=== PATIENT | female | born 1985 | race Caucasian/White ===

== ENCOUNTER 2019-10-13 15:30 | Emergency (ER) | payer OTHER, SELFPAY ==
[2019-10-13 15:58] VITALS: BP 126/79; PULSE 100; RESP 18; TEMP 36.7; O2SAT 100
--- NOTE | 2019-10-13 16:29 | ED.URI ---
HPI - URI/Sore Throat General Chief Complaint: Upper Respiratory Infection Stated Complaint: poss strep Time Seen by Provider: 10/13/19 16:29 Source: patient Mode of arrival: ambulatory Limitations: no limitations History of Present Illness HPI Narrative: patient presents with sore throat. No trouble swallowing no drooling. MD elicited complaint: sore throat Related Data Allergies Allergy/AdvReac Type Severity Reaction Status Date / Time doxycycline AdvReac Mild VOMITING Verified 10/13/19 16:33 Review of Systems Review of Systems: Narrative: CONSTITUTIONAL: Denies fever, chills, or sweats. EYES: Denies visual changes, redness, or discharge. ENT: Denies rhinorrhea, congestion, otalgia. Reports sore throat CARDIOVASCULAR: Denies chest pain, palpitations, or edema. RESPIRATORY: Denies cough or dyspnea. GASTROINTESTINAL: Denies abdominal pain, nausea, vomiting, or diarrhea. GENITOURINARY: Denies dysuria or hematuria. SKIN: Denies rash or itching. MUSCULOSKELETAL: Denies back pain, joint pain, or myalgia. NEUROLOGIC: Denies headache, numbness, or weakness. PSYCHIATRIC: Denies anxiety or depression. All systems reviewed & are unremarkable except as noted in HPI and below PMFSH Comments At time of signature, agree with nursing past medical, surgical, social and family history. There is no relevant family history pertinent to the presenting complaint Exam Narrative: Exam Narrative: GENERAL: Well-appearing, well-nourished, and in no acute distress. HEAD: Normocephalic, atraumatic. EYES: PERRLA and EOMI. ENT: Nares clear, no rhinorrhea or epistaxis. Mucous membranes moist. Mild pharyngeal erythremia, no trismus, no drooling, able to open mouth fully NECK: Supple. CHEST: Clear to auscultation. No respiratory distress. HEART: Regular rate and rhythm. No murmur heard. Normal peripheral pulses. ABDOMEN: Soft, nontender, nondistended, normal active bowel sounds. EXTREMITIES: Normal range of motion. No edema. SKIN: Warm, dry, no rash. NEURO: No focal deficits. Alert and oriented x3. [place] Coma Scale Eye Opening: Spontaneous 4 [place] Coma Scale Motor: Obeys Commands 6 [place] Coma Scale Verbal: Oriented 5 [place]iz Coma Scale Total 15 Course Vital Signs Vital signs: Vital Signs Temperature 36.7 C 10/13/19 15:58 Pulse Rate 100 10/13/19 15:58 Respiratory Rate 18 10/13/19 15:58 Blood Pressure 126/79 10/13/19 15:58 Pulse Oximetry 100 10/13/19 15:58 Temperature 36.7 C 10/13/19 15:58 Pulse Rate 100 10/13/19 15:58 Respiratory Rate 18 10/13/19 15:58 Blood Pressure 126/79 10/13/19 15:58 Pulse Oximetry 100 10/13/19 15:58 MDM - URI/Sore Throat Differential Diagnosis Differential diagnosis: Likely upper respiratory infection, otitis media, sinusitis, viral infection, bronchitis and pharyngitis Lab Data Labs: Strep Screen Presumptive Negative *(Reference Range: Negative)* Critical Care Time Critical Care Time Critical Care Time: No Discharge Plan Discharge Clinical Impression: Viral infection Pharyngitis Qualifiers: Pharyngitis/tonsillitis etiology: other specified organisms Qualified Code(s): J02.8 - Acute pharyngitis due to other specified organisms Patient Disposition: Home, Self-Care Condition: Stable Instructions: Antibiotic Form Additional Instructions: *Throw away your current toothbrush and begin using a new toothbrush in 48 hours in order to prevent re-infection. If anyone else's toothbrush is stored near yours, they should also throw away their current toothbrush and begin using a new one. *Sanitize all reusable water bottles. *Do not share items with others. *Wash your hands often. Supportive care/Soothing measures/Pain relief: *Avoid cigarette smoke (including secondhand smoke) *Avoid acidic foods and beverages *Eat a soft diet for the next 3-4 days *Salt water gargles may alleviate some of the throat discomfort. Most
== END 2019-10-13 16:55 | disposition home or self-care (01) ==
PROVIDERS: Emergency Provider Nurse Practitioner Family; PCP Internal Medicine
DX: B34.9 Viral infection, unspecified (principal); J02.8 Acute pharyngitis due to other specified organisms
CPT/HCPCS: 87081; 87880; 99213; G0463

== ENCOUNTER 2020-05-30 00:35 | Outpatient (CLI) | payer OTHER, SELFPAY ==
[2020-05-30 16:40] LABS: SARS-CoV-2 RNA PCR Negative
== END 2020-05-30 00:36 | disposition home or self-care (01) ==
LOC: ANHCOVIDDT 00:35
PROVIDERS: PCP Internal Medicine; Visit Provider Obstetrics & Gynecology
DX: Z01.812 Encounter for preprocedural laboratory examination (principal); Z20.828 Contact with and (suspected) exposure to other viral communicable diseases
CPT/HCPCS: 87635; C9803; U0003

== ENCOUNTER 2020-06-01 02:20 | Day surgery (SDC) | payer OTHER, SELFPAY ==
[2020-05-19 17:00] VITALS: BMI 32.3
[2020-06-01] VITALS (14 sets, daily range): BP systolic 109–131; BP diastolic 70–92; PULSE 58–100; RESP 12–20; TEMP 36.5–37.1; O2SAT 93–100
--- NOTE | 2020-06-01 11:51 | P.HP_ITS ---
H&P: HPI History of Present Illness Date/Time: 06/01/20 11:51 Chief complaint: Pelvic Pain/ Dysmenorrhea Narrative: 35 y/o who has had a tubal ligation and an endometrial ablation. Her menstrual flow has really lightened, but she has had persistent and steadily worsening dysmenorrhea. She has tried a number of different remedies, and none has worked very well. She desires definitive management. Review of Systems Review of Systems: All systems reviewed & are unremarkable except as noted in HPI and below PMFSH Surgical History Surgical History History of endometrial ablation History of reduction mammoplasty History of tubal ligation Social History Social History Smoking status: Never smoker Alcohol intake: current Alcohol use details: drinks every 6 months Substance use: never Living arrangements: with family Spiritual care concerns: No Meds Home Medications and Allergies Home Medications Medication Instructions Recorded Confirmed Type No Home Medications 05/19/20 05/19/20 History Allergies Allergy/AdvReac Type Severity Reaction Status Date / Time doxycycline AdvReac Mild VOMITING Verified 05/19/20 16:40 Exam 2 Const: Orientation/consciousness: patient oriented x3 Other: Well- developed, well-nourished female in no acute distress. Neck: Thyroid: thyroid normal Lymphatic: no lymphadenopathy noted (in neck, axilla or inguinal nodes) Resp: Effort & Inspection: normal respiratory effort Auscultation: clear to auscultation bilaterally Cardio: Rate: regular rate Rhythm: regular rhythm Heart sounds: S1 normal heart sound present and S2 normal heart sound present GI: Other: ABD: Soft, nontender, nondistended. No guarding or rebound tenderness. No hepatosplenomegaly. : General: Yes no CVA tenderness Other: External genitalia: normal female hair distribution, without lesion. Urethral meatus: no lesion, non prolapsed. Bladder: no mass, nontender Vagina: well-estrogenized, without lesion or discharge. No cystocele or rectocele. Cervix: no lesion or discharge. Uterus: small, anteverted, freely mobile, nontender Adnexa: no mass or tenderness. Anus/perineum: no lesions, nontender Back/Spine/Pelvis: Back: no CVA tenderness Skin: General skin exam: normal color and no rashes or lesions noted Neuro: General: patient oriented x3 Extrem: Other: Extremities: nontender with no edema Psych: Mental Status: mental status grossly normal Affect: normal affect Assessment and Plan Assessment and plan (1) Dysmenorrhea: Code(s): N94.6 - Dysmenorrhea, unspecified Status: Acute Assessment and Plan: She desires definitive management with hysterectomy. She understands that hysterectomy will render her permanently sterile. I have offered her a total vaginal hysterectomy with bilateral salpingectomies. We plan to leave the ovaries in situ. She understands risks of surgery to include risks of anesthesia, risks of pain, infection, bleeding, blood products, thromboembolic phenomena and damage to adjacent structures such as bowel, bladder, ureters, blood vessels and nerves. She understands all these risks and elects to proceed with surgery.
[2020-06-01] MEDS: ACETAMINOPHEN 500 MG TABLET 1000 MG PO (12:58)
--- NOTE | 2020-06-01 13:01 | WPDHPUPDATE1 ---
History and Physical Update Update Date/Time: 06/01/20 13:01 History and Physical has been reviewed, including an updated exam of the patient. There are NO changes in the patient's condition. Risks, benefits, and alternatives have been discussed and questions answered. Patient agrees to proceed with procedure.
--- NOTE | 2020-06-01 13:25 | WPDANESEPPF ---
Anes - Initial Pre Proc Eval Procedure: Operation Date: 06/01/20 14:00 Proposed Procedures p Total Vaginal Hysterectomy With Bilateral Salpingectomy - John Marquis MD Date/Time: 06/01/20 13:25 Surgeon: John Marquis MD Pre Op Diagnosis: Pelvic Pain/ Dysmenorrhea Patient Data Age: 35 Gender: F Height: 5 ft 6 in Weight: 88.35 kg Last Vital Signs Temp 98.4 F 06/01/20 12:38 Pulse 78 06/01/20 12:38 Resp 16 06/01/20 12:38 BP 131/92 H 06/01/20 12:38 Pulse Ox 100 06/01/20 12:38 Allergies Allergy/AdvReac Type Severity Reaction Status Date / Time doxycycline AdvReac Mild VOMITING Verified 05/19/20 16:40 Home Medications Medication Instructions Recorded Confirmed Type No Home Medications 05/19/20 05/19/20 History Patient hx anesthesia problems: none Family hx anesthesia problems: none PMFSH Past Medical History Medical History (Updated 06/01/20 @ 13:25 by Keegan Chase MD) Anxiety Depression Surgical History Surgical History History of endometrial ablation History of reduction mammoplasty History of tubal ligation Social History Social History Smoking status: Never smoker Alcohol intake: current Alcohol use details: drinks every 6 months Substance use: never Living arrangements: with family Spiritual care concerns: No Anes - Eval Final PreProcedure Day of Procedure 06/01/20 13:25 Patient weight: overweight Heart: regular rate and rhythm Lungs: clear to auscultation Airway: Mallampati scale class II Neurological: alert and oriented Last oral intake: >/= 8 hours ASA classification: II Emergent: no Anesthetic plan: proceed Anesthesia type and monitoring: general ETT and standard monitoring Informed Consent: The patient's anesthetic plan and its attendant risks and benefits were discussed with the patient/family/POA. Questions were solicited and answers provided to the satisfaction of the patient/family/POA.
[2020-06-01] MEDS: KETOROLAC 15 MG/ML VIAL (*BKC) IV PUSH (13:28)
[2020-06-01] MEDS: LACTATED RINGERS 1,000 ML 30 ML IV CONT ×3 (13:29→16:05)
[2020-06-01] MEDS: ceFAZolin 2 GM/D5W 50 ML 2 GM/50 ML BAG IVPB (14:02)
--- NOTE | 2020-06-01 15:14 | P.OP_ITS ---
Procedure Note - Detailed Date of procedure: 06/01/20 Pre-op diagnosis: Pelvic Pain/ Dysmenorrhea Dysmenorrhea Post-op diagnosis: same Procedure performed: Total vaginal hysterectomy Description of procedure: The patient was taken to the operating room where she was prepared and draped in the usual sterile fashion in the dorsal lithotomy position. The bladder was drained with red rubber catheter. A weighted specul um was placed posteriorly. A Anthony retractor was used anteriorly. The cervix was grasped with a single-tooth tenaculum. Ten mL of sterile saline was infiltrated circumferentially around the cervix to aid in tissue plane dissection. The cervix was circumscribed using electrocautery. The peritoneal cavity was entered sharply posteriorly and a long weighted speculum was placed. The uterosacral and cardinal ligaments on both sides were then clamped, transected and suture ligated using 0 Vicryl. These were tagged for later identification. The bladder was dissected off the cervix and lower uterine segment and reflected away. The LigaSure device was then used to clamp, ligate and transect the broad ligaments bilaterally. Finally, the utero-ovarian ligament, round ligament and tube complexes on both sides were able to be clamped, transected and suture ligated using 0 Vicryl. The specimen was passed off to be sent to pathology. The Fallopian tubes were unable to be adequately visualized, so bilateral salpingectomy was not performed. The pedicles were inspected and found to be hemostatic. The vaginal cuff angles were then transfixed to the ipsilateral cardinal uterosacral ligaments for support. The vaginal cuff was reapproximated using 0 Vicryl in a running, locked fashion. Hemostasis was excellent. A [place] catheter was placed. Vaginal packing soaked in Premarin cream was placed. Sponge, lap, needle and instrument counts were correct. The patient was awakened and taken to the recovery room in stable condition. I was present and scrubbed for the entire procedure. Implants: None Anesthesia: GETA Surgeon: John Marquis MD Estimated blood loss (mL): 100 Drains: Yes (durham) Packing: Yes (vaginal) Pathology: yes (uterus and cervix) Complications: None Condition: stable Disposition: PACU Findings: The uterus was enlarged, otherwise unremarkable. Ovaries and tubes not able to be visualized.
--- NOTE | 2020-06-01 15:16 | PM.DS ---
DS: Admitting Diagnosis Admitting Diagnosis Admitting Diagnosis: Pelvic Pain/ Dysmenorrhea DS: Discharge Diagnosis Discharge Diagnosis (1) Dysmenorrhea: Code(s): N94.6 - Dysmenorrhea, unspecified Status: Acute DS: Data Data Completed and Pending Pending studies at discharge: Pending at discharge 06/01/20 14:55 Surgical [PTH] Routine Discharge Plan Discharge Patient Disposition: Home, Self-Care Discharge Instructions: Call or return if temperature above 100.4? F, increased abdominal pain, increased vaginal bleeding or any new problems. Stand Alone Forms: General Discharge Instructions Follow-up/Referrals: John Marquis MD [Physician] - (4 weeks) Discharge Medications: New ibuprofen 600 mg tablet 600 mg PO Q6H PRN (Reason: cramps) Qty: 30 RF: 0 oxycodone-acetaminophen [Percocet] 5-325 mg tablet 1 - 2 tablet PO Q6H PRN (Reason: pain) Qty: 30 RF: 0 Primary Care Provider: FrandyTheresa Attending physician on admission: John Marquis
[2020-06-01] MEDS: HYDROmorphone HCL INJ (*CRX) 1 MG/ML SYR 0.5 MG IV PUSH ×3 (15:36→15:52)
[2020-06-01] MEDS: diphenhydrAMINE HCl INJ 50 MG/ML VIAL 25 MG IV PUSH ×2 (15:54→16:10)
--- NOTE | 2020-06-01 16:37 | PC.NURSE ---
PT arrived on unit unaccompanied extremely agitated and anxious regarding her pain level. 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 PT verbalized understanding of such care.
[2020-06-01] MEDS: DEXTROSE 5%/0.45% SOD CHL 1,000 ML 125 ML IV CONT (16:59)
[2020-06-01] MEDS: SIMETHICONE 80 MG TAB.CHEW PO ×2 (17:00→23:20)
[2020-06-01] MEDS: HYDROcodone/acetaminophen (*CRX) 10-325 MG TABLET 1 TAB PO (17:02)
[2020-06-01] MEDS: fentaNYL CITRATE INJ (*CRX) 100 MCG/2 ML VIAL (18:39)
[2020-06-01] MEDS: fentaNYL CITRATE INJ (*CRX) 100 MCG/2 ML VIAL 25 MCG IV PUSH ×2 (19:40→20:40)
[2020-06-01] MEDS: ENOXAPARIN 40 MG/0.4 ML SYRINGE SUB-Q (20:40)
[2020-06-01] MEDS: IBUPROFEN 600 MG TABLET PO (21:45)
[2020-06-01] MEDS: oxyCODONE/ACETAMINOPHEN (*CRX) 5-325 MG TABLET 2 TABLET PO (21:46)
[2020-06-02] MEDS: SIMETHICONE 80 MG TAB.CHEW PO ×2 (03:37→08:52)
[2020-06-02] MEDS: oxyCODONE/ACETAMINOPHEN (*CRX) 5-325 MG TABLET 2 TABLET PO ×2 (03:38→08:53)
[2020-06-02] MEDS: IBUPROFEN 600 MG TABLET PO ×2 (03:39→08:53)
[2020-06-02 03:55] VITALS: BP 110/74; PULSE 92; RESP 16; TEMP 36.7
[2020-06-02 05:54] LABS: Basophils Percent Auto 0.1 % (0.2-1.2); Hematocrit 39.7 % (37.0-47.0); Hemoglobin 13.3 g/dL (12.0-15.0); Immature Granulocyte Absolute 0.07 K/mm3 (0.00-0.031); Immature Granulocyte Percent A 0.4 % (0-0.5); Lymphocytes Absolute Auto 1.99 K/mm3 (0.9-3.2); Lymphocytes Percent Auto 11.9 % (18.3-44.2); Mean Corpuscular HGB Conc 33.5 g/dl (32-36); Mean Corpuscular Hemoglobin 29.4 pg (26-34); Mean Corpuscular Volume 87.8 fl (80-100); Mean Platelet Volume 11.6 fl (7.4-10.4); Monocytes Absolute Auto 0.8 K/mm3 (0.1-0.6); Monocytes Percent Auto 4.7 % (2.6-8.5); Neutrophils Absolute Auto 13.9 K/mm3 (1.3-6.7); Neutrophils Percent Auto 82.9 % (45.5-73.1); Platelet Count Result 275 k/mm3 (150-375); Red Blood Count 4.52 M/mm3 (4.2-5.4); Red Cell Distribution Width 12.7 % (11.5-14.5); White Blood Count 16.7 K/mm3 (4.5-10.0)
--- NOTE | 2020-06-02 06:46 | PM.GYNPNOP ---
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 P: Home to f/u 4 weeks. Time Spent With Patient Time with patient: less than 15 minutes [employer]PAR[employer] R[employer] CLERK- PN:Subj Post-Op Subjective Date/time seen: 06/02/20 06:46 Interval history: Pain OK. Tolerating diet. Voiding. Would like to go home. Exam Narrative: Exam Narrative: AVSS I/O OK ABD soft, nontender. 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 - PN: Obj Data Vital Signs Vital Signs: Vital Signs - 24 hr 06/01/20 12:38 06/01/20 15:20 06/01/20 15:30 Temperature 36.9 C 36.5 C Pulse Rate 78 100 88 Respiratory Rate 16 14 19 Blood Pressure 131/92 H 126/89 129/84 Pulse Oximetry 100 97 100 06/01/20 15:45 06/01/20 16:00 06/01/20 16:15 Temperature Pulse Rate 70 88 88 Respiratory Rate 20 20 12 Blood Pressure 131/82 123/84 114/73 Pulse Oximetry 100 100 100 06/01/20 17:00 06/01/20 17:15 06/01/20 17:30 Temperature 36.6 C Pulse Rate 58 L 88 69 Respiratory Rate 18 18 18 Blood Pressure 115/79 109/74 111/75 Pulse Oximetry 98 93 93 06/01/20 17:45 06/01/20 17:55 06/01/20 18:30 Temperature 36.6 C 37.1 C Pulse Rate 88 58 L 95 Respiratory Rate 18 18 18 Blood Pressure 110/79 115/79 123/70 Pulse Oximetry 95 98 95 06/01/20 19:00 06/01/20 23:00 06/02/20 03:55 Temperature 36.9 C 36.7 C 36.7 C Pulse Rate 65 70 92 Respiratory Rate 20 20 16 Blood Pressure 113/81 117/79 110/74 Pulse Oximetry Intake/Output Intake/Output: Intake & Output 05/30/20 05/31/20 06/01/20 06/02/20 23:59 23:59 23:59 23:59 Intake Total 150 500 Output Total 1460 600 Balance -1310 -100 Meds/Results Medications: Active Medications Generic Name Dose Route Start Last Admin Trade Name Freq PRN Reason Stop Dose Admin Fentanyl Citrate 25 mcg 06/01/20 18:04 06/01/20 20:40 Sublimaze IV PUSH 25 mcg Q1HR PRN Administration Pain Rated 7-10 Dextrose/Sodium Chloride 1,000 mls @ 125 mls/hr 06/01/20 16:26 06/01/20 16:59 Dextrose 5% Sodium Chloride 0.45% IV CONT 125 mls/hr .Q8H PABLO Administration Ibuprofen 600 mg 06/01/20 16:26 06/02/20 03:39 Motrin PO 600 mg Q6H PRN Administration Cramping Ketorolac Tromethamine 30 mg 06/01/20 16:26 Toradol Inj IV PUSH 06/06/20 16:27 Q6H PRN Pain Rated 4-6 Naloxone HCl 0.1 mg 06/01/20 16:26 Narcan IV PUSH Q2M PRN Respiratory rate less than 10 Ondansetron HCl 4 mg 06/01/20 16:26 Zofran Inj IV PUSH Q6H PRN Nausea And Vomiting Oxycodone/Acetaminophen 2 tablet 06/01/20 18:06 06/02/20 03:38 Percocet 5-325 Mg PO 2 tablet Q6HR PRN Administration Pain Rated 7-10 Oxycodone/Acetaminophen 1 tablet 06/01/20 18:10 Percocet 5-325 Mg PO Q4H PRN Pain Rated 4-6 Simethicone 80 mg 06/01/20 16:26 06/02/20 03:37 Mylicon PO 80 mg Q2H PRN Administration Gas Labs CBC & Chem 7: 06/02/20 03:54 Labs: Laboratory Results - last 24 hr 06/01/20 06/02/20 13:10 03:54 WBC 16.7 H RBC 4.52 Hgb 13.3 Hct 39.7 MCV 87.8 MCH 29.4 MCHC 33.5 RDW 12.7 Plt Count 275 MPV 11.6 H Immature Gran % (Auto) 0.4 Neut % (Auto) 82.9 H Lymph % (Auto) 11.9 L Nolan % (Auto) 4.7 Eos % (Auto) 0.0 Baso % (Auto) 0.1 L Lymph # (Auto) 1.99 Nolan # (Auto) 0.8 H Eos # (Auto) 0.0 Baso # (Auto) 0.0 Abs Immat Gran (auto) 0.07 H Absolute Neuts (auto) 13.9 H Absolute Nucleated RBC 0.0 Nucleated RBC % 0.0 Blood Type O Negative Antibody Screen Negative
[2020-06-02 07:30] VITALS: BP 105/72; PULSE 73; RESP 16; TEMP 36.8; O2SAT 98
--- NOTE | 2020-06-02 08:30 | PC.NURSE ---
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 PT verbalized understanding of such care.
[2020-06-02 09:00] VITALS: PULSE 73; RESP 16; O2SAT 98
--- NOTE | 2020-06-02 10:46 | WPDANESPN ---
Anes - Prog Note Post-Op Date/Time: 06/02/20 10:46 Cardiovascular status: normal Respiratory status: normal Airway patency: baseline Mental status: baseline Post-Op hydration status: normal Vital Signs: Last Vital Signs Temp 36.8 C 06/02/20 07:30 Pulse 73 06/02/20 07:30 Resp 16 06/02/20 07:30 BP 105/72 06/02/20 07:30 Pulse Ox 98 06/02/20 07:30 Pain Score (VAS): 10/26 I/O: Intake & Output 06/01/20 06/02/20 06/02/20 23:59 07:59 15:59 Intake Total 100 500 Output Total 1410 600 Balance -1310 -100 Laboratory Tests 06/02/20 03:54 06/01/20 06/02/20 13:10 03:54 WBC 16.7 H RBC 4.52 Hgb 13.3 Hct 39.7 MCV 87.8 MCH 29.4 MCHC 33.5 RDW 12.7 Plt Count 275 MPV 11.6 H Immature Gran % (Auto) 0.4 Neut % (Auto) 82.9 H Lymph % (Auto) 11.9 L [place] % (Auto) 4.7 Eos % (Auto) 0.0 Baso % (Auto) 0.1 L Lymph # (Auto) 1.99 [place] # (Auto) 0.8 H Eos # (Auto) 0.0 Baso # (Auto) 0.0 Abs Immat Gran (auto) 0.07 H Absolute Neuts (auto) 13.9 H Absolute Nucleated RBC 0.0 Nucleated RBC % 0.0 Blood Type O Negative Antibody Screen Negative Post-procedural complaints: none Patient Feedback: Patient satisfied with anesthetic care.
--- NOTE | 2020-06-02 11:45 | PC.NURSE ---
PT received discharge instructions per protocol and verbalized understanding of such instructions.
--- NOTE | 2020-06-02 12:25 | PC.NURSE ---
PT discharged to home via wheelchair to waiting car. follow up appts confirmed
== END 2020-06-02 12:25 | disposition home or self-care (01) ==
LOC: ANHSURGERY 15:17 → ANHOB2 19:26
PROVIDERS: PCP Internal Medicine; Visit Provider Obstetrics & Gynecology
PROC: (CPT 58260; principal; 2020-06-01 14:00)
DX: N80.0 Endometriosis of uterus (principal); N94.6 Dysmenorrhea, unspecified; R10.2 Pelvic and perineal pain; Z98.51 Tubal ligation status
CPT/HCPCS: 58260; 36415; 85025; 86850; 86900; 86901; 88307; 99199; A9270; J0330; J0690; J1100; J1170; J1200; J1650; J1885; J2250; J2405; J2704; J3010; J7030; J7120

== ENCOUNTER 2022-06-11 11:48 | Emergency (ER) | payer OTHER, SELFPAY ==
--- NOTE | ~2022-06-11 | XR_ITS ---
EXAMINATION: XR abdomen/kub 1V INDICATION: Low back pain, right ureteral stone TECHNIQUE: Supine views of the abdomen were obtained on 2 radiographs. COMPARISON: CT from today FINDINGS: A 4 mm stone projects in the expected location of the distal [facility] There are phleboliths of the pelvis. The bowel gas pattern is normal. IMPRESSION: 1. 4 mm stone of the distal right ureter. Reviewed, dictated and finalized at location A.
--- NOTE | ~2022-06-11 | CT_ITS ---
EXAMINATION: CT abdomen pelvis wo con DATE: 06/11/2022 12:08 INDICATION: Hematuria. Low back pain. TECHNIQUE: Computed tomography (CT) of the abdomen and pelvis was performed without intravenous contr ast. Automated exposure control and iterative reconstruction technique were employed. The dose-length product was 479.47 mGy-cm. COMPARISON: None. FINDINGS: The visualized portions of the lung bases demonstrate minimal atelectasis. No pleural effus ion. The heart size is normal. No pericardial effusion. The liver, gallbladder, spleen, pancreas, adr enal glands, and left kidney are normal. There is a 4.5 cm cyst in right kidney. There is mild right hydronephrosis and hydroureter. There is a 4 mm stone in distal right ureter. There is diverticulosis of the colon without evidence of diverticulitis. The appendix is normal. There are no dilated loops of bowel. There are no pathologically enlarged lymph nodes. There is no free intraperitoneal fluid. T here is mild thoracolumbar spondylosis. IMPRESSION: 1. 4 mm stone in distal right ureter with mild right hydronephrosis and hydroureter. Reviewed, dictated and finalized at location A. IMPRESSION: 1. 4 mm stone in distal right ureter with mild right hydronephrosis and hydrour eter.
[2022-06-11 11:50] VITALS: BP 148/91; PULSE 97; RESP 18; TEMP 36.2; O2SAT 100
[2022-06-11 12:15] LABS: Basophils Percent Auto 0.3 % (0.2-1.2); Eosinophils Absolute Auto 0.1 K/mm3 (0-0.3); Eosinophils Percent Auto 0.7 % (0-4.4); Hematocrit 44.1 % (37.0-47.0); Hemoglobin 14.4 g/dL (12.0-15.0); Immature Granulocyte Absolute 0.05 K/mm3 (0.00-0.031); Immature Granulocyte Percent A 0.5 % (0-0.5); Lymphocytes Absolute Auto 2.83 K/mm3 (0.9-3.2); Lymphocytes Percent Auto 26.6 % (18.3-44.2); Mean Corpuscular HGB Conc 32.7 g/dl (32-36); Mean Corpuscular Hemoglobin 30.2 pg (26-34); Mean Corpuscular Volume 92.5 fl (80-100); Monocytes Absolute Auto 0.7 K/mm3 (0.1-0.6); Monocytes Percent Auto 6.2 % (2.6-8.5); Neutrophils Percent Auto 65.7 % (45.5-73.1); Platelet Count Result 289 k/mm3 (150-375); Red Blood Count 4.77 M/mm3 (4.2-5.4); White Blood Count 10.6 K/mm3 (4.5-10.0)
[2022-06-11 12:27] LABS: Alanine Aminotransferase 18 U/L (6-35); Albumin Level 4.4 g/dL (3.5-5.1); Alkaline Phosphatase 72 U/L (38-126); Anion Gap 7 mmol/L (8-16); Aspartate Amino Transferase 22 U/L (14-36); Bilirubin,Total 0.6 mg/dL (0.2-1.3); Blood Urea Nitrogen 13 mg/dL (7-17); Calcium 9.3 mg/dL (8.4-10.2); Carbon Dioxide 28 mmol/L (22-30); Chloride 101 mmol/L (98-107); Estimated CRCL calculation 82 ml/min; Estimated Glomerular Filt Rate > 60; Glucose 125 mg/dL (65-110); Sodium 136 mmol/L (137-145)
[2022-06-11] MEDS: MORPHINE SULFATE (*CRX) 4 MG/ML INJ IV PUSH (12:50)
[2022-06-11] MEDS: KETOROLAC 30 MG/ML VIAL (*BKC) IV PUSH (12:50)
[2022-06-11] MEDS: SODIUM CHLORIDE 0.9% IV 1,000 ML 999 ML IV CONT ×2 (12:51→14:52)
[2022-06-11] MEDS: ONDANSETRON INJ 4 MG/2 ML VIAL IV PUSH (12:51)
[2022-06-11 13:19] LABS: Appearance Urine Cloudy (Clear); Bilirubin Urine 1+ (Negative); Blood Urine 3+ (Negative); Color Urine Amber (Yellow); Glucose Urine UA Negative (Negative); Ketones Urine Negative (Negative); Leukocyte Esterase Ur Negative LEU/UL (Negative); Nitrate Urine Negative (Negative); Protein Urine 2+ mg/dL (Negative); Specific Grav Ur >= 1.030 (1.001-1.035); Urobilinogen Urine 0.2 mg/dL (<2.0); pH Urine 5.5 (5.0-9.0)
--- NOTE | 2022-06-11 13:20 | ED.GENADULT ---
HPI - General Adult General Chief complaint: Urogenital-Female Stated complaint: Bilateral Flank Pain Time Seen by Provider: 06/11/22 12:18 History of Present Illness HPI narrative: 37-year-old female presents emergency room with bilateral flank pain radiates into her pelvis since yesterday. Patient endorses a history of kidney stones. States pain began gradually yesterday and has since worsened. Patient endorses noticing hematuria this morning. Denies fevers. Denies diarrhea or constipation. Related Data Allergies Allergy/AdvReac Type Severity Reaction Status Date / Time doxycycline AdvReac Mild VOMITING Verified 05/19/20 16:40 Review of Systems Review of Systems: CONSTITUTIONAL: Denies fever, chills, or sweats. EYES: Denies visual changes, redness, or discharge. ENT: Denies rhinorrhea, congestion, sore throat, or otalgia. CARDIOVASCULAR: Denies chest pain, palpitations, or edema. RESPIRATORY: Denies cough or dyspnea. GASTROINTESTINAL: Reports bilateral flank pain, nausea GENITOURINARY: Reports hematuria. SKIN: Denies rash or itching. MUSCULOSKELETAL: Denies back pain, joint pain, or myalgia. NEUROLOGIC: Denies headache, numbness, dizziness, or weakness. PSYCHIATRIC: Denies anxiety or depression. [facility] Past Medical History Medical History Anxiety Depression Surgical History Surgical History History of endometrial ablation History of reduction mammoplasty History of tubal ligation Social History Social History Smoking status: Never smoker Alcohol intake: current Alcohol use details: drinks every 6 months Substance use: never Spiritual care concerns: No Exam Narrative: GENERAL: Well-appearing, well-nourished, no physical limitations, and in no acute distress. HEAD: Normocephalic, atraumatic. EYES: Conjunctivae normal, PERRLA and EOMI. CHEST: Clear to auscultation. No respiratory distress. No wheezes rales or rhonchi. No tenderness. HEART: Regular rate and rhythm. No murmur heard. Normal peripheral pulses. ABDOMEN: Soft, nontender, nondistended, normal active bowel sounds. BACK: Bilateral CVA tenderness EXTREMITIES: Normal range of motion. No edema. No clubbing or cyanosis SKIN: Warm, dry, no rash. No noted wounds NEURO: No focal deficits. Alert and oriented x3. MAEW. CN's II-XI intact bilaterally, normal gait PSYCH: Cooperative. Normal mood and affect. Course Vital Signs Vital signs: Vital Signs Temperature 36.2 C L 06/11/22 11:50 Pulse Rate 97 06/11/22 11:50 Respiratory Rate 18 06/11/22 11:50 Blood Pressure 148/91 H 06/11/22 11:50 Pulse Oximetry 100 06/11/22 11:50 Temperature 36.2 C L 06/11/22 11:50 Pulse Rate 97 06/11/22 11:50 Respiratory Rate 18 06/11/22 11:50 Blood Pressure 148/91 H 06/11/22 11:50 Pulse Oximetry 100 06/11/22 11:50 Medical Decision Making MDM Narrative Medical decision making narrative: Discussed case with Dr. Ness. He states his office will give her a call in the morning for a close follow-up. Vital Signs Vital Signs: Vital Signs Temperature 36.2 C L 06/11/22 11:50 Pulse Rate 97 06/11/22 11:50 Respiratory Rate 18 06/11/22 11:50 Blood Pressure 148/91 H 06/11/22 11:50 Pulse Oximetry 100 06/11/22 11:50 Temperature 36.2 C L 06/11/22 11:50 Pulse Rate 97 06/11/22 11:50 Respiratory Rate 18 06/11/22 11:50 Blood Pressure 148/91 H 06/11/22 11:50 Pulse Oximetry 100 06/11/22 11:50 Lab Data Result diagrams: 06/11/22 12:02 06/11/22 12:02 Labs: Lab Results 06/11/22 06/11/22 06/11/22 Range/Units 12:02 12:02 12:59 WBC 10.6 H (4.5-10.0) K/mm3 RBC 4.77 (4.2-5.4) M/mm3 Hgb 14.4 (12.0-15.0) g/dL Hct 44.1 (37.0-47.0) % MCV 92.5 (80-100) fl MCH 30.2 (26-34) pg MC
[2022-06-11 13:41] LABS: Mucus Urine Few /lpf; RBC Urine >75 /hpf (0-2); WBC Urine >75 /hpf
[2022-06-11 14:10] LABS: Add Urine Microscopic? YES
[2022-06-11] MEDS: fentaNYL CITRATE INJ (*CRX) 100 MCG/2 ML VIAL 50 MCG IV PUSH (14:52)
[2022-06-11] MEDS: HYDROmorphone HCL INJ (*CRX) 1 MG/ML SYR IV PUSH (15:56)
== END 2022-06-11 17:54 | disposition home or self-care (01) ==
PROVIDERS: Emergency Medicine; Emergency Provider Nurse Practitioner Family
DX: N13.2 Hydronephrosis with renal and ureteral calculous obstruction (principal)
CPT/HCPCS: 36415; 74018; 74176; 80053; 81001; 85025; 87086; 87088; 96361; 96374; 96375; 99284; J1170; J1885; J2270; J2405; J3010; J7030

== ENCOUNTER 2022-06-14 19:42 | Emergency (ER) | payer OTHER, SELFPAY ==
--- NOTE | ~2022-06-14 | XR_ITS ---
EXAMINATION: XR abdomen/kub 1V DATE: 06/14/2022 20:04 INDICATION: Kidney stone. Right flank pain. TECHNIQUE: A supine view of the abdomen on 2 radiographs was obtained. COMPARISON: CT and KUB dated 06/11/2022 FINDINGS: The 3-4 mm distal right ureteral stone has advanced to the region of the ureterovesicular junction. U nchanged pattern of 3 phleboliths in the pelvis, one on the right and 2 including the largest on the left. There are couple additional densities slightly more cephalad in the pelvis corresponding to tub al ligation rings. Normal bowel gas pattern. Bone island at the left femoral head. IMPRESSION: 1. Interval advancement of a 3-4 mm right renal stone now at the ureterovesicular junction. Reviewed, dictated and finalized at location A. IMPRESSION: 1. Interval advancement of a 3-4 mm right renal stone now at the ureterovesicul ar junction.
[2022-06-14 19:45] VITALS: O2SAT 95
[2022-06-14 19:46] VITALS: BP 144/107; O2SAT 100
[2022-06-14 19:47] VITALS: BP 144/107; PULSE 94; RESP 16; TEMP 36.6; O2SAT 100
--- NOTE | 2022-06-14 19:53 | ED.GENADULT ---
HPI - General Adult General Chief complaint: Unspecified Stated complaint: R KIDNEY STONES Source: RN notes reviewed History of Present Illness HPI narrative: Patient presents emergency department from home for kidney stone. Patient states that she is seen in the emergency department yesterday and diagnosed with a kidney stone on the right side states that she had been doing better with the pain throughout the day today and then pain became more severe and she is driving home today states the pain is located in the right flank and goes around to the right abdomen described as sharp and stabbing states she has been taking her Flomax hydrocodone and Zofran with her last dose around 3 PM today she denies having fevers or chills or any other symptoms. The patient was given fentanyl 75 mcg by EMS in route the patient does state that fentanyl and morphine are not effective for her and that Dilaudid is the only pain medication that seems to help her Related Data Allergies Allergy/AdvReac Type Severity Reaction Status Date / Time doxycycline AdvReac Mild VOMITING Verified 05/19/20 16:40 Review of Systems Review of Systems: Gen.: Denies fevers or chills ENT: Denies congestion Respiratory: Denies shortness of breath or cough CV: Denies chest pain or palpitations GI: See HPI reports kidney stone Musculoskeletal: Denies back pain or muscle pain Neuro: Denies numbness, tingling, weakness or focal weakness Skin: Denies rash Except as documented, all other systems reviewed and negative [facility] Past Medical History Medical History Anxiety Depression Surgical History Surgical History History of endometrial ablation History of reduction mammoplasty History of tubal ligation Social History Social History Smoking status: Never smoker Alcohol intake: current Alcohol use details: drinks every 6 months Substance use: never Spiritual care concerns: No Exam Narrative: APPEARANCE: No acute distress, nontoxic, resting in bed EYES: EOMI HEENT: Normocephalic, atraumatic, OMM RESPIRATORY: No respiratory distress Clear to auscultation bilaterally with no rhonchi wheezing or rales. CARDIOVASCULAR: Regular rate and rhythm without murmurs rubs or gallops. ABDOMINAL: Soft, nontender, nondistended, no rebound or guarding right flank tenderness MUSCULOSKELETAl: Moves all extremities. No clubbing, cyanosis or edema. NEURO: Awake and alert. Following commands, speech normal, no focal deficits SKIN:: Warm, dry. No rashes lesions or abrasions PSYCHIATRIC: Normal affect/mood, Course Course Emergency Course: Reviewed old records showing right-sided kidney stone Patient states pain is improved with Dilaudid and Toradol. Patient states that Toradol showed increased improvement and is requesting Toradol prescription for at home Discussed with patient results of workup and diagnosis. Discussed need for follow-up with primary care, proper use of medication, and reasons to return to the emergency department. Patient understands and agrees to current treatment plan Vital Signs Vital signs: Vital Signs Pulse Oximetry 95 06/14/22 19:45 Temperature 97.9 F 06/14/22 19:47 Pulse Rate 94 06/14/22 19:47 Respiratory Rate 16 06/14/22 19:47 Blood Pressure 144/107 H 06/14/22 19:47 Pulse Oximetry 94 06/14/22 20:01 Medical Decision Making Vital Signs Vital Signs: Vital Signs Pulse Oximetry 95 06/14/22 19:45 Temperature 97.9 F 06/14/22 19:47 Pulse Rate 94 06/14/22 19:47 Respiratory Rate 16 06/14/22 19:47 Blood Pressure 144/107 H 06/14/22 19:47 Pulse Oximetry 94 06/14/22 20:01 Lab Data Result diagrams: 06/14/22 19:55 06/14/22 19:55 Labs: Lab Results 06/14/22 06/14/22 06/14/22 Range/Units 1
[2022-06-14 20:01] VITALS: O2SAT 94
[2022-06-14] MEDS: SODIUM CHLORIDE 0.9% IV 1,000 ML 999 ML IV CONT (20:02)
[2022-06-14] MEDS: HYDROmorphone HCL INJ (*CRX) 1 MG/ML SYR 0.5 MG IV PUSH (20:03)
[2022-06-14 20:06] LABS: Appearance Urine Cloudy (Clear); Bilirubin Urine Negative (Negative); Blood Urine 3+ (Negative); Color Urine Yellow (Yellow); Glucose Urine UA Negative (Negative); Ketones Urine 2+ mg/dL (Negative); Leukocyte Esterase Ur Negative LEU/UL (Negative); Nitrate Urine Negative (Negative); Protein Urine Trace mg/dL (Negative); Specific Grav Ur 1.025 (1.001-1.035); Urobilinogen Urine 0.2 mg/dL (<2.0); pH Urine 6.5 (5.0-9.0)
[2022-06-14 20:09] LABS: Basophils Percent Auto 0.2 % (0.2-1.2); Eosinophils Absolute Auto 0.1 K/mm3 (0-0.3); Eosinophils Percent Auto 0.4 % (0-4.4); Hematocrit 45.4 % (37.0-47.0); Hemoglobin 15.2 g/dL (12.0-15.0); Immature Granulocyte Absolute 0.07 K/mm3 (0.00-0.031); Immature Granulocyte Percent A 0.4 % (0-0.5); Immature Platelet Fraction Pct 4.9 % (0.9-11.2); Lymphocytes Percent Auto 11.7 % (18.3-44.2); Mean Corpuscular HGB Conc 33.5 g/dl (32-36); Mean Corpuscular Hemoglobin 30.9 pg (26-34); Mean Corpuscular Volume 92.3 fl (80-100); Mean Platelet Volume 10.4 fl (7.4-10.4); Monocytes Absolute Auto 0.9 K/mm3 (0.1-0.6); Monocytes Percent Auto 5.4 % (2.6-8.5); Neutrophils Absolute Auto 13.3 K/mm3 (1.3-6.7); Neutrophils Percent Auto 81.9 % (45.5-73.1); Platelet Count Result 290 k/mm3 (150-375); Red Blood Count 4.92 M/mm3 (4.2-5.4); White Blood Count 16.2 K/mm3 (4.5-10.0)
[2022-06-14 20:10] LABS: Amorphous Sediment Urine Few; Mucus Urine Rare /lpf; RBC Urine >75 /hpf (0-2); Squamous Epithelial Cell Urine Few /hpf (Few); WBC Urine 0-3 /hpf
[2022-06-14 20:16] LABS: Add Urine Microscopic? YES
[2022-06-14 20:18] LABS: Alanine Aminotransferase 21 U/L (6-35); Albumin Level 4.8 g/dL (3.5-5.1); Alkaline Phosphatase 71 U/L (38-126); Anion Gap 12 mmol/L (8-16); Aspartate Amino Transferase 25 U/L (14-36); Bilirubin,Total 0.5 mg/dL (0.2-1.3); Blood Urea Nitrogen 18 mg/dL (7-17); Calcium 9.2 mg/dL (8.4-10.2); Carbon Dioxide 29 mmol/L (22-30); Chloride 98 mmol/L (98-107); Estimated CRCL calculation 69 ml/min; Estimated Glomerular Filt Rate 57; Glucose 114 mg/dL (65-110); Potassium 4.3 mmol/L (3.4-5.0); Sodium 139 mmol/L (137-145)
[2022-06-14 20:19] LABS: Platelet Estimate Adequate (Adequate); Schistocytes None Seen (NORMAL)
--- NOTE | 2022-06-14 20:34 | PC.NURSE ---
Pt wanting own room. Moved to Room 15 and report given to Karla CHERY
--- NOTE | 2022-06-14 20:43 | PC.NURSE ---
Patient moved to room 15 due to anxiety sharing a room with someone . patient states she would like to transfer to another facility due to not being treated well and being punished by being put into a penitentiary cell . this RN apologized to patient stating that she was not being punished and that the room she was put in was the only room available at this time. patient was tearful. this RN asked if I could get anything for her and she states it doesnt even matter now . This RN asked charge nurse to speak with patient
[2022-06-14] MEDS: KETOROLAC 15 MG/ML VIAL (*BKC) IV PUSH (21:37)
[2022-06-14 22:13] VITALS: BP 124/68; PULSE 82; RESP 16; TEMP 37; O2SAT 100
[2022-06-14 22:21] LABS: SARS-CoV-2 RNA PCR Negative
--- NOTE | 2022-06-14 22:34 | PC.NURSE ---
rosmery sent home with patient and verbalized proper understanding
== END 2022-06-14 22:34 | disposition home or self-care (01) ==
PROVIDERS: Emergency Provider Emergency Medicine
DX: N20.0 Calculus of kidney (principal); Z20.822 Contact with and (suspected) exposure to COVID-19
CPT/HCPCS: 36415; 74018; 80053; 81001; 85025; 85055; 96361; 96374; 96375; 99284; C9803; J1170; J1885; J7030; U0003; U0005

== ENCOUNTER 2022-06-19 15:32 | Emergency (ER) | payer OTHER, SELFPAY ==
[2022-06-19 15:44] VITALS: BP 134/84; PULSE 92; RESP 20; TEMP 36.7; O2SAT 100
--- NOTE | 2022-06-19 15:54 | ED.LOWEXIN ---
HPI - Extremity Injury (Lower) General Chief Complaint: Extremity Injury, Lower Stated Complaint: Right big toe and index toe on left infection Time Seen by Provider: 06/19/22 15:54 Source: patient Mode of arrival: ambulatory Limitations: no limitations History of Present Illness HPI Narrative: 37 y/o female presented for c/o right great toe redness and swelling with drainage for about one month, worse for 2 days. States at the onset, she had pulled skin around the toe nail resulting in bleeding and open skin sore. Since then she applied peroxide, alcohol and HAMIDA. She spoke with a telemed doc and took 3 day course of abx without change in symptoms. Now reports more pain to the toe. She also reports cracked skin to right thumbnail and left 2nd toe nail. Denies redness, swelling or drainage to these sites. Related Data Allergies Allergy/AdvReac Type Severity Reaction Status Date / Time doxycycline AdvReac Mild VOMITING Verified 06/19/22 15:53 Review of Systems Review of Systems: CONSTITUTIONAL: Denies body aches, fever, chills, or sweats. EYES: Denies visual changes, redness, or discharge. CARDIOVASCULAR: Denies chest pain, palpitations, or edema. RESPIRATORY: Denies cough or dyspnea. GASTROINTESTINAL: Denies abdominal pain, nausea, vomiting, or diarrhea. SKIN: Reports redness and swelling to toe MUSCULOSKELETAL: Denies back pain, joint pain, or myalgia. NEUROLOGIC: Denies headache, numbness, tingling, or weakness. [facility] Past Medical History Medical History Anxiety Depression Surgical History Surgical History History of endometrial ablation History of reduction mammoplasty History of tubal ligation Social History Social History Smoking status: Never smoker Alcohol intake: current Alcohol use details: drinks every 6 months Substance use: never Spiritual care concerns: No Comments At time of signature, I have reviewed and agree with nursing past medical, surgical, social and family history unless otherwise noted. Please see nursing chart for further information. There is no relevant family history pertinent to the presenting complaint Exam Narrative: GENERAL: Well-appearing EYES: conjunctivae clear, and EOMI. ENT: Mucous membranes moist. Oropharynx without edema, erythema or lesions. CHEST: Clear to auscultation. HEART: Regular rate and rhythm. SKIN: Warm, dry. Right medial great toe with epidermal layer removed, mild swelling, redness, and purulent drainage, tender with palpation, c/w paronychia; Left 2nd toe with epidermal layer removed to lateral aspect of toenail without swelling, drainage or tenderness. Right thumb with dry cracked skin no swelling redness or tenderness NEURO: Alert and oriented x3. Course Course Emergency Course: Patient is aware of diagnosis, understands and agrees to treatment plan. Anticipatory guidance given. Patient agrees to follow-up as directed and is aware of reasons to seek care at the emergency department. Portions of this record may have been created with voice recognition software Level of Care: Express Care Visit Vital Signs Vital signs: Vital Signs Temperature 98.1 F 06/19/22 15:44 Pulse Rate 92 06/19/22 15:44 Respiratory Rate 20 06/19/22 15:44 Blood Pressure 134/84 06/19/22 15:44 Pulse Oximetry 100 06/19/22 15:44 Oxygen Delivery Room Air 06/19/22 15:44 Temperature 98.1 F 06/19/22 15:44 Pulse Rate 92 06/19/22 15:44 Respiratory Rate 20 06/19/22 15:44 Blood Pressure 134/84 06/19/22 15:44 Pulse Oximetry 100 06/19/22 15:44 Oxygen Delivery Room Air 06/19/22 15:44 Reviewed MDM - Extremity Injury (Lower) MDM Narrative Medical decision making narrative: Appears to have infection to left great toe, actively draining, no indication for
== END 2022-06-19 16:22 | disposition home or self-care (01) ==
PROVIDERS: Emergency Provider Nurse Practitioner Family
DX: L08.9 Local infection of the skin and subcutaneous tissue, unspecified (principal)
CPT/HCPCS: 99213; G0463

== ENCOUNTER 2023-02-14 19:02 | Emergency (ER) | payer OTHER, SELFPAY ==
[2023-02-14 19:05] VITALS: BP 131/83; PULSE 95; RESP 18; TEMP 37.1; O2SAT 100
== END 2023-02-14 20:53 | disposition left against medical advice (07) ==
LOC: ANHED 19:35
PROVIDERS: Emergency Provider Physician Assistant; PCP Internal Medicine
DX: J02.9 Acute pharyngitis, unspecified (principal)
CPT/HCPCS: 99199

== ENCOUNTER 2023-08-07 08:06 | Emergency (ER) | payer OTHER, SELFPAY ==
[2023-08-07 08:11] VITALS: BP 140/92; PULSE 102; RESP 20; TEMP 36.8; O2SAT 100
--- NOTE | 2023-08-07 08:18 | ED.SKABFB ---
HPI - Skin/Abscess/Foreign Bdy General Chief complaint: Skin/Abscess/Foreign Body Stated complaint: bit by spider right ankle Time Seen by Provider: 08/07/23 08:12 Source: patient Mode of arrival: ambulatory Limitations: no limitations History of Present Illness HPI narrative: Millie is a 38-year-old female patient presenting to the clinic today with complaints of possible spider bite to the left medial ankle. She reports that she saw a spider by her last night. The area is red with very mild swelling and very itchy per patient. Related Data Home Medications Medication Instructions Recorded Confirmed isotretinoin 40 mg capsule 40 mg PO DAILY 08/07/23 08/07/23 (Amnesteem) Allergies Allergy/AdvReac Type Severity Reaction Status Date / Time doxycycline AdvReac Mild VOMITING Verified 08/07/23 08:17 Review of Systems Review of Systems: Pertinent positives per HPI. Patient denies any fever, chills, rash, headache, visual changes, dizziness, cough, runny nose, sore throat, shortness of breath, chest pain, palpitations, nausea, vomiting, diarrhea, constipation, abdominal pain, or any urinary issues. [facility] Past Medical History Medical History Anxiety Depression Surgical History Surgical History History of endometrial ablation History of reduction mammoplasty History of tubal ligation Social History Social History Smoking status: Never smoker Alcohol intake: current Alcohol use details: drinks every 6 months Substance use: never Living arrangements: with family Spiritual care concerns: No Comments At the time of my signature, I reviewed and agree with the nursing past medical, surgical, social, and family history. There is no relevant family history pertinent to the patient complaint. Exam Narrative: General: Well-developed, well nourished, in no apparent distress Head: Normocephalic, atraumatic. Cardio: Regular rate and rhythm, s1 and s2 normal, no murmur appreciated. Resp: Clear to auscultation bilaterally, no rhonchi, rales, wheezing or rubs. Integumentary: [place], warm, and dry, nickel size area to the left medial ankle with a open blister-area is very itchy and warm to touch. Very mild induration. No necrotic tissue visualized. Course Course Emergency Course: Portions of this record may have been created with voice recognition software. Level of Care: Express Care Visit Vital Signs Vital signs: Vital Signs Temperature 36.8 C 08/07/23 08:11 Pulse Rate 102 H 08/07/23 08:11 Respiratory Rate 20 08/07/23 08:11 Blood Pressure 140/92 H 08/07/23 08:11 Pulse Oximetry 100 08/07/23 08:11 Oxygen Delivery Room Air 08/07/23 08:11 Temperature 36.8 C 08/07/23 08:11 Pulse Rate 102 H 08/07/23 08:11 Respiratory Rate 20 08/07/23 08:11 Blood Pressure 140/92 H 08/07/23 08:11 Pulse Oximetry 100 08/07/23 08:11 Oxygen Delivery Room Air 08/07/23 08:11 Vital signs reviewed MDM - Skin/Abscess/Foreign Bdy MDM Narrative Medical decision making narrative: At the time of visit patient is resting comfortably on the exam table. Patient appears to be nontoxic. I suspect the insect bite to the left medial ankle. Will send in prescription for Keflex to cover for infection and triamcinolone cream to cover for a true allergic reaction due to the insect bite. Supportive measures were discussed with the patient she voiced understanding of the discharge instructions and agrees to treatment plan. Return precautions were reviewed. Differential Diagnosis Differential diagnosis: Likely abscess of skin or subcutaneous tissue, cellulitis, eczema, insect bites and contact dermatitis Discharge Plan Discharge Clinical Impression: Insect bite Patient Disposition: Home, Self-Care Condition:
== END 2023-08-07 08:22 | disposition home or self-care (01) ==
PROVIDERS: Emergency Provider Nurse Practitioner Family
DX: S90.562A Insect bite (nonvenomous), left ankle, initial encounter (principal); W57.XXXA Bitten or stung by nonvenomous insect and other nonvenomous arthropods, initial encounter
CPT/HCPCS: 99213; G0463

== ENCOUNTER 2024-12-09 17:28 | Emergency (ER) | payer OTHER, SELFPAY ==
--- OUTSIDE RECORDS SUMMARY | 2024-12-09 17:31 | XMS_ITS | Clinical Summary ---
Author Organization [facility] Medical Office [facility] Address [address] [place] [address] Care Team Providers Care E Learning Developer Name Role Phone Franci Daniel MD Primary Care Provid er Allergies No known active allergies Medications topiramate (TOPAMAX) 100 mg Oral Tab Take 1 Tab by mouth daily. Active fluoxetine (PROZAC) 20 mg Oral capsule Take 20 mg by mouth daily. Active NUVARING 0.12-0.015 mg/24 hr Vaginal Ring Insert 1 Device vaginally. Insert one ring for 3 weeks, remove for 1 week,repeat again. NEEDS APPT 1 Device 0 02/09/2010 Active Active Problems No known active problems Family History Medical History Relation Name Comments Healthy Father Healthy Mother Healthy Sister 1 Healthy Sister 2 Healthy Son Relation Name Status Comments Father Alive Maternal Grandfather Maternal Grandmother Mother Alive Paternal Grandfather Paternal Grandmother Sister 1 Alive Sister 2 Alive Son Alive Social History Tobacco Use Types Packs/Day Years Used Date Smoking Tobacco: Former Comments:QUIT AT APRX 6 WKS --04/23 Alcohol Use Standard Drinks/Week Comments No 0 (1 standard drink = 0.6 oz pur e alcohol) Comments No Sex and Gender Information Value Date Recorded Sex Assigned at Not on file Legal Sex Female 5:37 AM APPLIANCE TECHNICIAN Gender Identity Not on file Sexual Orientation Not on file Last Filed Vital Signs Vital Sign Reading Time Taken Comments Blood Pressure 127/88 11/26/2009 2:52 PM APPLIANCE TECHNICIAN Pulse 109 11/26/2009 2:52 PM APPLIANCE TECHNICIAN Temperature 36.7 C (98.1 F) 11/26/2009 2:52 PM APPLIANCE TECHNICIAN Respiratory Rate 20 11/26/2009 2:52 PM APPLIANCE TECHNICIAN Oxygen Saturation 95% 11/26/2009 2:52 PM APPLIANCE TECHNICIAN Inhaled Oxygen Concentration - - Weight 81.6 kg (180 lb) 11/26/2009 2:52 PM APPLIANCE TECHNICIAN Height 167.6 cm (5' 6 ) 11/26/2009 2:52 PM APPLIANCE TECHNICIAN Body Mass Index 29.05 11/26/2009 2:52 PM APPLIANCE TECHNICIAN Plan of Treatment Health Maintenance Due Date Last Done Comments DTAP/TDAP/TD VACCINES (1 - Tdap) 2006 HEPATITIS B VACCINES (1 of 3 - 19+ 3-dose series) 2006 Preventative Visit-Managed Medicaid 2006 PAP SMEAR 01/11/2012 01/10/2009 CERVICAL CANCER SCREENING 2017 HPV/Cotest 2017 01/10/2009 PAP SMEAR 2017 02/24/2010, 01/10/2009 INFLUENZA VACCINE (#1) 2024 HPV VACCINES Aged Out No longer eligi ble based on patient's age to complete this topic PNEUMOCOCCAL VACCINE 0-49 YEARS Aged Out No longer eligible b ased on patient's age to complete this topic Procedures Procedure Name Priority Date/Time Associated Diagnosis Comments CERV/VAG CYTOPATH, THIN PREP IMAGR RFLX HPV Routine 01/10/2009 10:46 AM CDT Routine Follow-Up from Last 3 Months or Most Recently Relevant to Health Maintenance Results * CERV/VAG CYTOPATH, THIN PREP DRESS CAP MAKER W/RFLX (01/10/2009 10:46 AM CDT) REPORT STATUS FINAL [facility] CLINICAL INFORMATION [facility] Comment: LAST MENSTRUAL PERIOD [facility] Comment:Information not prov ided PREV PAP: [facility] Comment:ASCUS POS HIGH RISK HPV 4 08 PREV BX: [facility] Comment:Information not prov ided SOURCE [facility] Comment:Endocervix ADEQUACY: [facility] Comment: Satisfactory for evaluation. Endocervical/transformation zone component present. INTERPRETATION [facility] Comment: Reactive cellular changes associated with repair Negative for intraepithelial lesion or malignancy. COMMENT [facility] Comment: This Pap test has been evaluated with computer assisted technology. PRISON KEEPER: [facility] Comment:BEF, CT(ASCP) PATHOLOGIST [facility] Comment: Wayne Baugh M.D., Board Certified in Anatomic Pathology and Cytopathology. ext. [phone] (electronic signature) Test Performed at: [facility] [address] [place] [address] ALEX SINHA MD Endocervical 01/10/2009 10:4 6 AM CDT us Robbin Robb MD PATHOLOGY/CYTOLOGY ORDERABLES Final Result INTERFACE SYSTEM Refer to clinic/hospital department [facility] [id number] [place] [address] from Last 3 Months or Most Recently Relevant to Health Maintenance Insurance MEDICAID [place] Care Teams E Learning Developer Relationship Specialty Start Date End Date Franci Daniel MD [address] [place] [address] PCP - General 11/26/09
--- OUTSIDE RECORDS SUMMARY | 2024-12-09 17:31 | XMS_ITS | Encounter Summary ---
Author Organization [facility] Address [address] [place] [address] Care Team Providers Care Meat Packager Name Role Phone Franci Daniel MD Primary Care Provid er Encounter Details Date Type Department Care Team (Late st Contact Info) Description 01/20/2009 Outpatient Historical HIS EMERGENCY ROOM WASH Er, Authorized P NO ADDRESS ON FILE Triston Soto MD [address] [facility] [place] [address] Unspecified Conjunctivitis Social History Tobacco Use Types Packs/Day Years Used Date Smoking Tobacco: Former Comments:QUIT AT APRX 6 WKS --04/23 Alcohol Use Standard Drinks/Week Comments No 0 (1 standard drink = 0.6 oz pur e alcohol) Comments No Sex and Gender Information Value Date Recorded Sex Assigned at Not on file Legal Sex Female 5:[address] Gender Identity Not on file Sexual Orientation Not on file documented as of this encounter Plan of Treatment Not on file documented as of this encounter Visit Diagnoses Diagnosis Conjunctivitis unspecified Conjunctivitis, unspecified documented in this encounter Care Teams Meat Packager Relationship Specialty Start Date End Date Franci Daniel MD [address] [place] [address] PCP - General 11/26/09 documented as of this encounter
--- OUTSIDE RECORDS SUMMARY | 2024-12-09 17:31 | XMS_ITS | Encounter Summary ---
Author Organization [facility] Address [address] [place] [address] Care Team Providers Care Manufacturing Automation Engineer Name Role Phone Alfonso Aragon MD Primary Care Provid er Encounter Details Date Type Department Care Team (Latest Contact Info) Description 08/11/2008 Outpatient Historical HIS [facility] RADIOLOGY Macie Robb MD [address] [place] [address] [place] [address] Supervision of Normal First Social History Tobacco Use Types Packs/Day Years Used Date Smoking Tobacco: Never Assessed Comments Unknown Sex and Gender Information Value Date Recorded Sex Assigned at Not on file Legal Sex Female 5:37 AM SENIOR ENGINEERING TECHNICIAN Gender Identity Not on file Sexual Orientation Not on file documented as of this encounter Plan of Treatment Not on file documented as of this encounter Procedures Procedure Name Priority Date/Time Associated Diagnosis Comments US OB 14+ WKS SINGLE GEST Timed Study 08/11/2008 1:48 PM SENIOR ENGINEERING TECHNICIAN documented in this encounter Results * US OB 14+ WKS SINGLE GEST (08/11/2008 1:48 PM SENIOR ENGINEERING TECHNICIAN) Anatomical Region Laterality Modality Pelvis Other 08/11/2008 1:48 PM SENIOR ENGINEERING TECHNICIAN Narrative 08/17/2008 8:59 PM SENIOR ENGINEERING TECHNICIAN [facility] [address] [place] [id number] Admit Date: 08/11/2008 MILLIE BUTLER Sex: F Admit Prov: MACIE ROBB Date: 1985 Primary Care Prov: ALFONSO ARAGON CMRN: [id number] [facility] [phone] [facility] Ordering Prov: MACIE ROBB Accession Number: [id number] Interpretation PLEASE SEE REPORT FROM [facility] IN ULTRAVISUAL OR AWD (contact Medical Records). Dictated by: RADIOLOGY, DEPARTMENT O Electronically signed by: RADIOLOGY, DEPARTMENT 08/17/2008 20:59 Transcribed: 08/17/2008 12:17 RLH Procedure Note Radiology, Radiologist - 08/17/2008 [facility] [address] [address] Admit Date: 08/11/2008 MILLIE BUTLER Sex: F Admit Prov: MACIE ROBB Date: 1985 Primary Care Prov: ALFONSO ARAGON CMRN: [id number] [facility] [phone] IMAGING SERVICES Ordering Prov: MACIE ROBB Interpretation PLEASE SEE REPORT FROM [facility] IN ULTRAVISUAL OR AWD (contactMedical Records). Dictated by: RADIOLOGY, DEPARTMENT O Electronically signed by: RADIOLOGY, DEPARTMENT 08/17/2008 20:59 Transcribed: 08/17/2008 12:17 RL Macie Robb MD ORDERABLES Final Result documented in this encounter Visit Diagnoses Diagnosis Supervision of normal first documented in this encounter Care Teams Manufacturing Automation Engineer Relationship Specialty Start Date End Date Alfonso Aragon MD [address] [place] [address] PCP - General 11/26/09 documented as of this encounter
--- OUTSIDE RECORDS SUMMARY | 2024-12-09 17:31 | XMS_ITS | Encounter Summary ---
Author Organization [facility] Address [address] [place] [address] Care Team Providers Care Sales Force Developer Name Role Phone Franci Daniel MD Primary Care Provid er Encounter Details Date Type Department Care Team (Late st Contact Info) Description 12/04/2008 Outpatient Historical HIS OBSERVATION IN BED Robbin Robb MD [address] [address] Keegan Sullivan MD [address] [place] [address] [address] [place] [address] Social History Tobacco Use Types Packs/Day Years Used Date Smoking Tobacco: Former Comments:QUIT AT APRX 6 WKS --04/23 Alcohol Use Standard Drinks/Week Comments No 0 (1 standard drink = 0.6 oz pur e alcohol) Comments Yes Sex and Gender Information Value Date Recorded Sex Assigned at Not on file Legal Sex Female 5:37 AM LAB SUPPORT SERVICE TECH Gender Identity Not on file Sexual Orientation Not on file documented as of this encounter Plan of Treatment Not on file documented as of this encounter Visit Diagnoses Not on filedocumented in this encounter Care Teams Sales Force Developer Relationship Specialty Start Date End Date Franci Daniel MD [address] [place] [address] PCP - General 11/26/09 documented as of this encounter
--- OUTSIDE RECORDS SUMMARY | 2024-12-09 17:31 | XMS_ITS | Clinical Summary ---
Author Organization [facility] Address [address] [place] [address] Phone Care Team Providers Care Manager Cardiac Cath Name Role Phone Theresa Wise MD Primary Care Provider Allergies Active Allergy Reactions Criticality Noted Date Comments Doxycycline Vomiting 11/17/2018 Medications Escitalopram Oxalate (LEXAPRO) 5 MG Tablet Take 5 mg by mouth daily. Active amphetamine-dex troamphetamine (ADDERALL) 30 MG Tablet Take 30 mg by mouth daily. Active tamsulosin (FLOMAX) 0.4 MG Capsule Take 1 Cap by mouth every morning. 5 Cap 11/18/2018 Active traMADol (ULTRAM) 50 MG Tablet Take 1-2 Tabs by mouth every 8 hours as needed for Moderate or more severe pain. 15 Tab 11/18/2018 Active Active Problems Problem Noted Date Diagnosed Date Obstructive uropathy 11/17/2018 Leukocytosis 11/17/2018 Urinary tract infection without hematuria 2018 Ureteral stone 11/17/2018 Social History Tobacco Use Types Packs/Day Years Used Date Smoking Tobacco: Former Smokeless Tobacco: Never Alcohol Use Standard Drinks/Week Comments Never 0 (1 standard drink = 0.6 oz pur e alcohol) AUDIT-C Answer Date Recorded Frequency of Alcohol Consumption Never 11/17/2018 Average Number of Drinks Not on file 019 Frequency of Binge Drinking Not on file 12/2018 Comments No Sex and Gender Information Value Date Recorded Sex Assigned at Not on file Legal Sex Female 7:35 PM CDT Gender Identity Not on file Sexual Orientation Not on file Last Filed Vital Signs Vital Sign Reading Time Taken Comments Blood Pressure 118/84 11/18/2018 1:45 PM HEATER PLANER OPERATOR Pulse 76 11/18/2018 1:45 PM HEATER PLANER OPERATOR Temperature 36.7 C (98 F) 11/18/2018 1:45 PM HEATER PLANER OPERATOR Respiratory Rate 18 11/18/2018 1:45 PM HEATER PLANER OPERATOR Oxygen Saturation 95% 11/18/2018 10: 05 AM HEATER PLANER OPERATOR Inhaled Oxygen Concentration - - Weight 88.9 kg (195 lb 14.4 oz) 019 11:34 AM HEATER PLANER OPERATOR Height 165.1 cm (5' 5 ) 11/17/2018 5:21 AM HEATER PLANER OPERATOR Body Mass Index 32.6 11/17/2018 5:21 AM HEATER PLANER OPERATOR Plan of Treatment Health Maintenance Due Date Last Done Comments Hepatitis C Virus (HCV) Screening 1985 Influenza Immunization (#1) 2024 11/12/2018, 1 SARS-COV-2 Immunization ( season) 2024 10/25/2022, 09/27/2022 Respiratory Syncytial Virus (RSV) Immunization (Adult) (1 - 1-dose 75+ series) 2062 Hepatitis B Immunization Completed 003, 01/02/1997, 08/29/1996, Additional history exists DTaP/Tdap/Td Immunization Discontinued 2016, 11/05/2002, 02/19/1992, Additional history exists TdaP Immunization Completed 10/08/2016 Meningococcal Immunization (ACWY) Aged Out No longer eligible based on patient's age to complete this topic Pneumococcal Immunization Combined Aged Out No longer eligible based on patient's age to complete this topic Rotavirus Immunization Aged Out No lo nger eligible based on patient's age to complete this topic Insurance MEDICAID POWERS Advance Directives * Full Code (Latest Code Status on File) Date Activated Date Inactivated Comments 11/17/2018 11:32 AM 11/18/2018 5:27 PM CPR-Full Lenora tment: FULL ARREST: Attempt Resuscitation/CPR wit intubation and mechanical ventilation. PRE-ARREST: Use entire range of life support measures to stabilize the patient. Care Teams Manager Cardiac Cath Relationship Specialty Start Date End Date Theresa Wise MD [address] [place] [address] [address] [place] [address] PCP - General Internal Medicine 11/17/18
--- OUTSIDE RECORDS SUMMARY | 2024-12-09 17:31 | XMS_ITS | Encounter Summary ---
Author Organization [employer] Address [address] [place] [address] Care Team Providers Care Director [employer] Name Role Phone Franci Daniel MD Primary Care Provid er Encounter Details Date Type Department Care Team (Late st Contact Info) Description 01/19/2009 Outpatient Historical [facility] EMERGENCY ROOM WASH Er, Authorized P NO ADDRESS ON FILE Social History Tobacco Use Types Packs/Day Years Used Date Smoking Tobacco: Former Comments:QUIT AT [facility]X 6 WKS --04/23 Alcohol Use Standard Drinks/Week Comments No 0 (1 standard drink = 0.6 oz pur e alcohol) Comments No Sex and Gender Information Value Date Recorded Sex Assigned at Not on file Legal Sex Female 5:37 AM FLIGHT SERVICE SPECIALIST Gender Identity Not on file Sexual Orientation Not on file documented as of this encounter Plan of Treatment Not on file documented as of this encounter Visit Diagnoses Not on filedocumented in this encounter Care Teams Director [employer] Relationship Specialty Start Date End Date Franci Daniel MD [address] [place] [address] PCP - General 11/26/09 documented as of this encounter
--- OUTSIDE RECORDS SUMMARY | 2024-12-09 17:31 | XMS_ITS | Encounter Summary ---
Author Organization [employer] Address [address] [place] [address] Care Team Providers Care Supervisor Publications Production Name Role Phone Franci Daniel MD Primary Care Provid er Encounter Details Date Type Department Care Team (Late st Contact Info) Description 12/04/2008 Outpatient Historical [facility] INPATIENT IN BED Robbin Robb MD [address] [place] [id number] Keegan Medrano MD [address] [place] [phone] Normal Delivery Social History Tobacco Use Types Packs/Day Years Used Date Smoking Tobacco: Former Comments:QUIT AT [facility]X 6 WKS --08 Alcohol Use Standard Drinks/Week Comments No 0 (1 standard drink = 0.6 oz pur e alcohol) Comments Yes Sex and Gender Information Value Date Recorded Sex Assigned at Not on file Legal Sex Female 5:37 AM METALS ANALYST Gender Identity Not on file Sexual Orientation Not on file documented as of this encounter Plan of Treatment Not on file documented as of this encounter Procedures Procedure Name Priority Date/Time Associated Diagnosis Comments BLOOD BANK AB IDENT Routine 12/05/2008 6 :15 AM CDT RH IMMUNE GLOBULIN EVALUATION Routine 12/05/2008 6:15 AM CDT RH IMMUNE GLOBULIN EVALUATION Routine 12/05/2008 6:15 AM CDT CBC WITH DIFFERENTIAL Routine 12/05/2008 6:15 AM CDT BLOOD BANK ANTIBODY SCREEN Routine 12/05/2008 6:15 AM CDT RH IMMUNE GLOBULIN EVALUATION Routine 12/05/2008 5:00 AM CDT CORD BLOOD EVALUATION MOTHER Routine 12/04/2008 10:32 AM CDT PATHOLOGY Routine 12/04/2008 7:50 AM CDT URINALYSIS WITH REFLEX CULTURE Stat 12/04/2008 7:20 AM CDT DRUG SCREEN, URINE Stat 12/04/2008 7: 20 AM CDT URINALYSIS W/REFLEX MICROSCOPIC Stat 12/04/2008 7:20 AM CDT URINE CULTURE Stat 12/04/2008 7:20 AM CDT CBC WITH DIFFERENTIAL Stat 12/04/2008 6:35 AM CDT documented in this encounter Results * RH IMMUNE GLOBULIN EVALUATION (12/05/2008 6:15 AM CDT) RHIG STATUS Issued [facility] BLOOD BANK PRODUCT Rh Immune Globulin [facility] RHIG LOT NUMBER [id number] [facility] 12/05/2008 6:15 AM CDT us Keegan Medrano MD BLOOD BANK ORDERABLES Final R esult INTERFACE SYSTEM Refer to clinic/hospital department [facility] CLIA# [id number] [address] [place] [address] * ANTIBODY IDENTIFICATION (12/05/2008 6:15 AM CDT) ANTIBODY ID PANEL Passive Anti-D [facility] 12/05/2008 6:15 AM CDT us Keegan Medrano MD BLOOD BANK ORDERABLES Final R esult Performing Organization Address City/[facility] Phone Number INTERFACE SYSTEM Refer to clinic/hospital department [facility] CLIA# [id number] [address] [place] [address] * ANTIBODY SCREEN (12/05/2008 6:15 AM CDT) ANTIBODY SCREEN Positive [facility] 12/05/2008 6:15 AM CDT us Keegan Medrano MD BLOOD BANK ORDERABLES Final R esult Performing Organization Address [facility] Phone Number INTERFACE SYSTEM Refer to clinic/hospital department [facility] CLIA# [id number] [address] [place] [address] * RH IMMUNE GLOBULIN EVALUATION (12/05/2008 6:15 AM CDT) SCREEN Negative [facility] 12/05/2008 6:15 AM CDT us Keegan Medrano MD BLOOD BANK ORDERABLES Final R esult Performing Organization Address [facility] Phone Number INTERFACE SYSTEM Refer to clinic/hospital department [facility] CLIA# [id number] [address] [place] [address] * (ABNORMAL) CBC WITH DIFFERENTIAL (12/05/2008 6:15 AM CDT) [facility] MCHC 33.3 31.5 - 35.5 % [facility] PLATELETS 194 140 - 350 K/uL [facility] MCV 89.0 82.0 - 99.0 fL [facility] HEMOGLOBIN 11.6(L) 11.8 - 14.8 g/dL [facility] RDW 13.5 11.5 - 14.5 % [facility] WBC 12.2(H) 4.0 - 9.8 K/uL [facility] MCH 29.7 27.2 - 32.6 pg [facility] MPV 11.1 9.3 - 12.4 fL [facility] HEMATOCRIT 34.8(L) 35.5 - 44.0 % [facility] RDW-STDEV 43.2 37.1 - 48.7 fL [facility] RBC 3.91 3.90 - 4.90 M/uL [facility] BASOPHILS 0 0 - 2 % [facility] BASOPHILS ABSOLUTE 0.01 0.00 - 0.20 K/uL [facility] MONOCYTES 6 3 - 13 % [facility] MONOCYTE ABSOLUTE 0.77 0.10 - 1.30 K/uL [facility] NEUTROPHILS 72(H) 45 - 70 % [facility] NEUTROPHIL ABSOLUTE 8.76(H) 1.90 - 7.00 K/uL [facility] EOSINOPHILS 0 0 - 7 % [facility] EOSINOPHIL ABSOLUTE 0.02 0.00 - 0.70 K/uL [facility] LYMPHOCYTES 22 16 - 45 % [facility] LYMPHOCYTE ABSOLUTE 2.66 0.70 - 4.50 K/uL [facility] Blood specimen (specimen) 12/05/2008 6:15 AM CDT 12/05/2008 6:15 AM CDT us Keegan Medrano MD HEMATOLOGY ORDERABLES Edited INTERFACE SYSTEM Refer to clinic/hospital department [facility] CLIA# [id number] [address] [place] [address] * RH IMMUNE GLOBULIN EVALUATION (12/05/2008 5:00 AM CDT) Pathologist [facility] CORD BLOOD TYPE O Positive [facility] RHIG ELIGIBILITY Pt is RhIg Candidate [facility] ABO/RH TYPE O Negative [facility] HISTORY CHECK No Historical ABO/Rh [facility] SPECIMEN LIFE 3 days from drawdate [facility] Blood specimen (specimen) 12/05/2008 5:00 AM CDT us eKegan Medrano MD BLOOD BANK ORDERABLES Edited Performing Organization Address City/[facility] de Phone Number INTERFACE SYSTEM Refer to clinic/hospital department [facility] CLIA# [id number] [address] [place] [address] * CORD BLOOD EVALUATION MOTHER (12/04/2008 10:32 AM CDT) CORD BLOOD TYPE O Positive [facility] CORDBLD DIRECT ARA Negative [facility] 12/04/2008 10:3 2 AM CDT us Historical Provider BLOOD BANK ORDERABLES Edited Performing Organization Address [facility] de Phone Number INTERFACE SYSTEM Refer to clinic/hospital department [facility] CLIA# [id number] [address] [place] [address] * PATHOLOGY (12/04/2008 7:50 AM CDT) FINAL REPORT [address] [address] Patient: MILLIE BUTLER : 1985 Procedure Date: 12/04/2008 Accession Date: 12/06/2008 Case No: [id number] Ordering Dr: KEEGAN MEDRANO Case types AW, BW, FW, NW and SH [place] [facility] [place] SURGICAL PATHOLOGY & NON-GYNECOLOGIC CYTOPATHOLOGY REPORT DIAGNOSIS PLACENTA, TEMPLE, DELIVERY: - INFARCT. - TRIMMED WEIGHT 538 G, APPROPRIATE FOR TERM GESTATION. - THREE-VESSEL UMBILICAL CORD. Specimen Description: Placenta,Third Trimester(>26 Weeks). Operative Procedure: Delivery. Patient Information/Histor y/Diagnosis: Small baby, rapid labor. Gross: The specimen is received in a container of formalin labeled with the patient's name Millie Butler. The specimen consists of a temple placenta that weighs 538 g and measures 20.0 x 19.6 x 1.5 cm. The umbilical cord is inserted at 7.1 cm from the nearest placental margin and measures 34.1 x 1.2 to 2.0 cm. A loose fragment of umbilical cord measures 20.0 x 1.4 cm. Cross-sections of the umbilical cord show three vessels. The membranes are jain-white and transparent, and are ruptured 4 cm from the placental margin. The surface of the placenta is blue-purple and shows scattered surface plaques. The maternal surface shows all lobules are present. Serial sections of the placenta from the maternal surface show a focal area of yellow-white induration that measures 1.0 cm. Aquatics Coordinator sections are submitted as follows: A1-umbilical cord and membranes; A2 through A4-placenta with area of induration in cassette A2. ANM/TMZ 12.08.2008 07:03 am Microscopic: The slides are labeled Gi Butler, [id number]. Sections of the membranes show no significant acute inflammation of the chorioamnion. The umbilical cord contains three vessels and is essentially unremarkable. Sections of the placenta show an infarct. The uninvolved villi appear mature with no apparent villitis. [facility] 12.08.2008 01:53 pm Staging Form: NA ELECTRONIC SIGNATURE FOR HANH DRAPER M.D.- 12/08/08 02:10 pm INTERFACE SYSTEM 12/04/2008 7:50 AM CDT us Keegan Medrano MD PATHOLOGY/CYTOLOGY ORDERABLES Final Result INTERFACE SYSTEM Refer to clinic/hospital department * URINE CULTURE (12/04/2008 7:20 AM CDT) PRELIMINARY REPORT No growth [facility] FINAL REPORT No growth [facility] 12/04/2008 7:20 AM CDT 12/04/2008 9:12 AM CDT us Keegan Medrano MD MICROBIOLOGY - GENERAL ORDERA BLES Final Result INTERFACE SYSTEM Refer to clinic/hospital department [facility] CLIA# [id number] [address] [place] [address] * (ABNORMAL) URINALYSIS (12/04/2008 7:20 AM CDT) COLOR UA Marilee [facility] BILIRUBIN UA Negative Negative [facility] NITRITE UA Negative Negative [facility] KETONES UA 3+(A) Negative [facility] PH UA 6.5 5.0 - 8.0 [facility] GLUCOSE UA Negative Negative [facility] BLOOD UA 4+(A) Negative [facility] CLARITY UA Slt. Cloudy(A) Clear [facility] PROTEIN UA 2+(A) Negative [facility] UROBILINOGEN UA <1 <1 mg/dL [facility] LEUKOCYTE ESTERASE UA Trace(A) Negative [facility] SPECIFIC GRAVITY UA 1.020 1.001 - 1.035 [facility] BACTERIA UA Trace None Seen /HPF [facility] WBC UA 0-5 0 - 5 /HPF [facility] MUCOUS, URINE 1+ [facility] EPITHELIAL CELLS, URINE 0-2 /HPF [facility] RBC UA 50-100(A) 0 - 2 /HPF [facility] TRANSITIONAL EPI 0-2 /HPF [facility] MACRO COMMENT <8 mL Received [facility] Urinary catheter specimen (specimen) 12/04/2008 7:20 AM CDT 12/04/2008 7:43 AM CDT us Keegan Medrano MD URINE ORDERABLES Edited Performing Organization Address [facility] de Phone Number INTERFACE SYSTEM Refer to clinic/hospital department [facility] CLIA# [id number] [address] [place] [address] * DRUG SCREEN, URINE (12/04/2008 7:20 AM CDT) COMMENT, TOXICOLOGY See Separate Comment [facility] Comment: The urine sample was not handled as a legal specimen and was received without a chain of custody. The results should be used only for medical purposes. A confirmation is recommended for all presumptive positive results. A negative result indicates the analyte, if present, is below the screening threshold. Drug Ref. Range Screening Threshold Amphetamines Negative 1000 ng/mL Barbiturates Negative 200 ng/mL Benzodiazepines Negative 100 ng/mL Cannabinoids Negative 50 ng/mL Cocaine Metabolite Negative 300 ng/mL Opiate Negative 300 ng/mL Phencyclidine Negative 25 ng/mL NOTE: New Screening Threshold for Amphetamines effective January 14, 2008. AMPHETAMINE QUAL, URINE Negative [facility] BARBITURATE QUAL, URINE Negative [facility] BENZODIAZEPINE QUAL, URINE Negative [facility] CANNABINOIDS QUAL, URINE Negative [facility] COCAINE QUAL URINE Negative [facility] OPIATE QUAL, URINE Negative [facility] PCP QUAL, URINE Negative [facility] Urine specimen (specimen) 12/04/2008 7:20 AM CDT 12/04/2008 7:43 AM CDT us Keegan Medrano MD URINE ORDERABLES Edited Performing Organization Address [facility] Co de Phone Number INTERFACE SYSTEM Refer to clinic/hospital department [facility] CLIA# [id number] [address] [place] [address] * URINALYSIS WITH REFLEX CULTURE (12/04/2008 7:20 AM CDT) URINE CULTURE ORDER Culture ordered [facility] Comment: Criteria for a reflex culture include one or more of the following: Abnormal WBCs, RBCs or bacteria. Lack of qualifying criteria does not exclude the possibility of a urinary tract infection. Dilute urine, drug interference, etc. may decrease the sensitivity of the criteria analytes. Urinary catheter specimen (specimen) 12/04/2008 7:20 AM CDT 12/04/2008 7:43 AM CDT us Keegan Medrano MD URINE ORDERABLES Final Result INTERFACE SYSTEM Refer to clinic/hospital department [facility] CLIA# [id number] [address] [place] [address] * (ABNORMAL) CBC WITH DIFFERENTIAL (12/04/2008 6:35 AM CDT) HEMATOCRIT 40.5 35.5 - 44.0 % [facility] RDW-STDEV 41.7 37.1 - 48.7 fL [facility] RBC 4.66 3.90 - 4.90 M/uL [facility] MCHC 35.1 31.5 - 35.5 % [facility] PLATELETS 211 140 - 350 K/uL [facility] MCV 86.9 82.0 - 99.0 fL [facility] HEMOGLOBIN 14.2 11.8 - 14.8 g/dL [facility] RDW 13.2 11.5 - 14.5 % [facility] WBC 15.1(H) 4.0 - 9.8 K/uL [facility] MCH 30.5 27.2 - 32.6 pg [facility] MPV 11.0 9.3 - 12.4 fL [facility] EOSINOPHILS 0 0 - 7 % [facility] EOSINOPHIL ABSOLUTE 0.01 0.00 - 0.70 K/uL [facility] LYMPHOCYTES 10(L) 16 - 45 % [facility] LYMPHOCYTE ABSOLUTE 1.49 0.70 - 4.50 K/uL [facility] BASOPHILS 0 0 - 2 % [facility] BASOPHILS ABSOLUTE 0.00 0.00 - 0.20 K/uL [facility] MONOCYTES 4 3 - 13 % [facility] MONOCYTE ABSOLUTE 0.63 0.10 - 1.30 K/uL [facility] NEUTROPHILS 86(H) 45 - 70 % [facility] NEUTROPHIL ABSOLUTE 12.99(H) 1.90 - 7.00 K/uL [facility] Blood specimen (specimen) 12/04/2008 6:35 AM CDT 12/04/2008 6:43 AM CDT us Keegan Medrano MD HEMATOLOGY ORDERABLES Edited INTERFACE SYSTEM Refer to clinic/hospital department [facility] CLIA# [id number] [address] [place] [address] documented in this encounter Visit Diagnoses Diagnosis Normal delivery documented in this encounter Care Teams Supervisor Publications Production Relationship Specialty Start Date End Date Franci Daniel MD [address] [place] [address] PCP - General 11/26/09 documented as of this encounter
--- OUTSIDE RECORDS SUMMARY | 2024-12-09 17:31 | XMS_ITS | Clinical Summary ---
Author Organization [facility] [place] Address [address] [place] [address] Care Team Providers Care Life Support Technician Name Role Phone Theresa Wise MD Primary Care Provider [phone] Source Comments [facility] [place],non-owned Affiliates and Associated Physician Practices is amultiple site organization consisting of ambulatory clinics and hospital sitesin [place], [place], [place] and [place]. This disclosure is being madepursuant to the Care Everywhere program and may not contain all information available regarding this patient. Last updated 18.[facility] [place] Allergies Active Allergy Reactions Criticality Noted Date Comments Doxycycline Vomiting 11/17/2018 Medications * Be aware that medications may not be up to date on this document. Alwaysverify current medications with the patient. Medication Sig Dispensed Refills Start Date End Date Status phentermine (ADIPEX-P) 37.5 MG tablet TK 1 T PO QD 04/22/2020 Active amoxicillin (Amoxil) 500 MG capsuleIndications :Acne vulgaris Take 1 (one) capsule by mouth 3 times daily 90 capsule 10/23/2022 Active Additional Information Patient not taking.Reported on 04/23/2023 tretinoin (Retin-A) 0.025 % creamIndications:A cne vulgaris Pea sized amount to entire face at night. 30 days supply. 45 g 5 10/23/2022 Active clindamycin (Cleocin) 1 % lotionIndications: Acne vulgaris Apply to affected area on face daily. 30 day supply. 60 mL 2 11/06/2022 Active benzoyl peroxide (Benzac) 5 % washIndications:Ac ne vulgaris Use as wash 1-2 times daily. 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 - Ddx includes irritated nevi vs. Skin tags vs. Other - Shave Biopsy x3 (see procedure note) - Post-biopsy handout given - Wound care instructions reviewed - Will call patient with biopsy results. If intervention is indicated, will make arrangements at that time Skin tag 02/16/2021 Assessment & Plan (02/16/2021 6:25 PM CDT): - Benign, reassured patient -5 skin tags removed today for cosmetic fee, see proc note Intradermal nevus of face 02/16/2021 Assessment & Plan (02/16/2021 6:25 PM CDT): - Pt says bothersome, rubs against mask - Reviewed that we can consider removal in future after we see how she heals from lesions removed today Dermatofibroma of right upper arm 02/16/2021 Assessment & Plan (02/16/2021 6:25 PM CDT): - Benign, reassured patient - Pt desires removal. Reviewed punch bx may be best chance to remove and we can do this at next visit. Leukocytosis 11/17/2018 Obstructive uropathy 11/17/2018 Ureteral stone 11/17/2018 Urinary tract infection without hematuria 2018 Lesion of nose 08/25/2014 Overview (04/10/2022): Lesion of nose Family History Medical History Relation Name Comments None Known Brother None Known Father None Known Maternal Aunt None Known Maternal Grandfather None Known Maternal Grandmother None Known Maternal Uncle None Known Mother None Known Other None Known Paternal Aunt None Known Paternal Grandfather None Known Paternal Grandmother None Known Paternal Uncle None Known Sister Asthma Neg Hx CVA Neg Hx Cancer - Breast Neg Hx Cancer - Other Neg Hx Cancer - Skin, Melanoma Neg Hx Cancer - Skin, Non Melanoma Neg Hx Eczema Neg Hx Hemophilia Neg Hx Psoriasis Neg Hx Relation Name Status Comments Brother Father Maternal Aunt Maternal Grandfather Maternal Grandmother Maternal Uncle Mother Other Paternal Aunt Paternal Grandfather Paternal Grandmother Paternal Uncle Sister Social History Tobacco Use Types Packs/Day Years Used Date Smoking Tobacco: Never Smokeless Tobacco: Never Tobacco Cessation:Counseling Given: Not Answered Alcohol Use Standard Drinks/Week Comments No 0 (1 standard drink = 0.6 oz pur e alcohol) PHQ-2 Answer Date Recorded Patient Health Questionnaire-2 Score 2 05/13/2024 Sex and Gender Information Value Date Recorded Sex Assigned at Female 05/13/2024 4:10 AM CDT Gender Identity Female 05/13/2024 4:10 AM CDT Sexual Orientation Straight 05/13/2024 4: 10 AM CDT Last Filed Vital Signs Vital Sign Reading Time Taken Comments Blood Pressure - - Pulse - - Temperature - - Respiratory Rate - - Oxygen Saturation - - Inhaled Oxygen Concentration - - Weight 84.8 kg (187 lb) 05/15/2024 2:44 PM CDT Height - - Body Mass Index - - Plan of Treatment Health Maintenance Due Date Last Done Comments PAP SMEAR 1987 HIV SCREENING 2002 HEPATITIS C SCREENING 12/31/2004 DTAP/TDAP/TD VACCINES (1 - Tdap) 2006 HEPATITIS B VACCINE (1 of 3 - 19+ 3-dose series) 2006 COVID-19 VACCINE (2023-2 5 season) 2024 INFLUENZA VACCINE (#1) 2024 DEPRESSION SCREENING 09/16/2024 05/15/2024 ZOSTER VACCINE (1 of 2) 2037 HIB VACCINE Aged Out No longer eligi ble based on patient's age to complete this topic HPV VACCINE Aged Out No longer eligi ble based on patient's age to complete this topic MENINGOCOCCAL (Group B) VACC INE SHARED DECISION-MAKING Aged Out No longer eligibl e based on patient's age to complete this topic MENINGOCOCCAL GROUPS A/C/Y/W VACCINE Aged Out No longer eligible b ased on patient's age to complete this topic PNEUMOCOCCAL VACCINE Aged Out No long er eligible based on patient's age to complete this topic Care Teams Life Support Technician Relationship Specialty Start Date End Date Theresa Wise MD [address] [place] [id number] PCP - General 03/21/18
--- OUTSIDE RECORDS SUMMARY | 2024-12-09 17:31 | XMS_ITS | Encounter Summary ---
Author Organization [employer] Address [address] [place] [address] Care Team Providers Care Facility Maintenance Worker Name Role Phone Franci Daniel MD Primary Care Provid er Encounter Details Date Type Department Care Team (Late st Contact Info) Description 12/01/2008 Outpatient Historical HIS OBSERVATION IN BED Robbin Robb MD [address] [address] Keegan Sullivan MD [address] [place] [address] [address] [place] [address] Social History Tobacco Use Types Packs/Day Years Used Date Smoking Tobacco: Former Comments:QUIT AT [facility] 6 WKS --04/23 Alcohol Use Standard Drinks/Week Comments No 0 (1 standard drink = 0.6 oz pur e alcohol) Comments Yes Sex and Gender Information Value Date Recorded Sex Assigned at Not on file Legal Sex Female 5:37 AM STAGE DIRECTOR Gender Identity Not on file Sexual Orientation Not on file documented as of this encounter Plan of Treatment Not on file documented as of this encounter Visit Diagnoses Not on filedocumented in this encounter Care Teams Facility Maintenance Worker Relationship Specialty Start Date End Date Franci Daniel MD [address] [place] [address] PCP - General 11/26/09 documented as of this encounter
[2024-12-09 17:38] VITALS: BP 150/94; PULSE 109; RESP 20; TEMP 37; O2SAT 96
--- NOTE | 2024-12-09 17:41 | ED.URI ---
HPI - URI/Sore Throat General Chief Complaint: Upper Respiratory Infection Stated Complaint: Cough/Dizziness/Chest Congestion Time Seen by Provider: 12/09/24 17:41 Source: patient Mode of arrival: ambulatory Limitations: no limitations History of Present Illness HPI Narrative: 9-year-old female presented for complaint of cough and chest tightness for 1 week. Endorses feeling dizzy at times with muffled hearing and subjective fevers and chills. Taking Benadryl and NyQuil in using humidifier. Denies chest pain, palpitations, wheezing, nausea, vomiting diarrhea, fevers or lethargy. Related Data Allergies Allergy/AdvReac Type Severity Reaction Status Date / Time doxycycline AdvReac Mild VOMITING Verified 12/09/24 17:38 Review of Systems Review of Systems: CONSTITUTIONAL: Denies body aches, fever, chills, or sweats. EYES: Denies visual changes, redness, or discharge. ENT: reports rhinorrhea, congestion, denies sore throat, or otalgia. CARDIOVASCULAR: Denies chest pain, palpitations, or edema. RESPIRATORY: Reports cough, sob, denies wheezing. GASTROINTESTINAL: Denies abdominal pain, nausea, vomiting, or diarrhea. GENITOURINARY: Denies dysuria or hematuria. SKIN: Denies rash, itching, or wounds. MUSCULOSKELETAL: Denies back pain, joint pain, or myalgia. NEUROLOGIC: Denies headache All systems reviewed & are unremarkable except as noted in HPI and below PMFSH Past Medical History Medical History Anxiety Depression Surgical History Surgical History History of endometrial ablation History of reduction mammoplasty History of tubal ligation Social History Social History (Updated 12/09/24 @ 17:52 by Nasreen Razo APRN) Smoking status: Current every day smoker Alcohol intake: current Alcohol use details: drinks every 6 months Substance use: never Living arrangements: with family Spiritual care concerns: No Comments At time of signature, I have reviewed and agree with nursing past medical, surgical, social and family history unless otherwise noted. Please see nursing chart for further information. There is no relevant family history pertinent to the presenting complaint Exam Narrative: GENERAL: Mildly ill-appearing, in no acute distress. EYES: EOMI. No redness or drainage. Conjunctivae normal. ENT: Mucous membranes pink and moist. No rhinorrhea. TMs normal bilaterally. Throat normal. Uvula midline. NECK: Normal AROM. Supple. CHEST: No respiratory distress. Lungs clear to all kwon. HEART: Regular rate and rhythm. No murmur appreciated. SKIN: Warm, dry, Capillary refill normal. Normal skin turgor. NEURO: Alert and oriented x3. Gait steady. Course Course Emergency Course: Patient is aware of diagnosis, understands and agrees to treatment plan. Anticipatory guidance given. Patient agrees to follow-up as directed and is aware of reasons to seek care at the emergency department. Portions of this record may have been created with voice recognition software Level of Care: Express Care Visit Vital Signs Vital signs: Vital Signs Temperature 98.6 F 12/09/24 17:38 Pulse Rate 109 H 12/09/24 17:38 Respiratory Rate 20 12/09/24 17:38 Blood Pressure 150/94 H 12/09/24 17:38 Pulse Oximetry 96 12/09/24 17:38 Oxygen Delivery Room Air 12/09/24 17:38 Temperature 98.6 F 12/09/24 17:38 Pulse Rate 109 H 12/09/24 17:38 Respiratory Rate 20 12/09/24 17:38 Blood Pressure 150/94 H 12/09/24 17:38 Pulse Oximetry 96 12/09/24 17:38 Oxygen Delivery Room Air 12/09/24 17:38 MDM - URI/Sore Throat MDM Narrative Medical decision making narrative: Discussed physical exam findings consistent with bronchitis. Reviewed prescriptions.. Advised supportive measures and signs/symptoms to go to the ER. Pt is appropriate for outpt treatment and f/u. Differential Diagnosis Differential diagnosis: Likely upper respiratory infection, sinusitis, viral infection, bronchitis and pharyngitis Discharge Plan Discharge Clinical Impression: Bronchitis Patient Disposition: Home, Self-Care Condition: Stable Instructions: Antibiotic Form, Acute Bronchitis (ED) Additional Instructions: Acute bronchitis can be contagious because it is usually caused by infection with a virus or bacteria. It is usually for a few days but you can be contagious for up to one week. Avoid crowds until you do not have a fever and symptoms are improved Take medication as directed Recommendations: Flonase spray and Zyrtec (or Claritin/Jolanta) for nasal congestion/drainage over the counter Cough syrup may cause drowsiness; avoid driving or take it at night time. Tylenol 1000mg every 8 hours as needed for pain Symptomatic treatment includes: rest, fluids, and increase humidity of the air at home. Follow up with your primary care provider as needed in 1 week Go to the ER for worsening symptoms or concerns Patient Language: Maltese Prescriptions: New albuterol sulfate 90 mcg/actuation HFA aerosol inhaler 2 inh inhalation QID PRN (Reason: shortness of breath or wheezing) Qty: 8.5 0RF benzonatate 200 mg capsule 200 mg PO TID PRN (Reason: cough) Qty: 30 0RF methylprednisolone [Medrol (Hugo)] 4 mg tablets,dose pack See Rx Instructions .ROUTE .COMPLEX Qty: 21 0RF Rx Instructions: orally per package directions azithromycin [Zithromax Z-Hugo] 250 mg tablet See Rx Instructions .ROUTE .COMPLEX Qty: 6 0RF Rx Instructions: For 250 mg dose pack: take 500 mg today (day 1), then 250 mg for 4 days (days 2-5) Follow-up/Referrals: PHYSICIAN,RUBBER TRIMMER [Primary Care Provider] - Stand Alone Forms: Work/School Release IP Time of Disposition: 17:50
== END 2024-12-09 18:00 | disposition home or self-care (01) ==
PROVIDERS: Emergency Provider Nurse Practitioner Family
DX: J40 Bronchitis, not specified as acute or chronic (principal); F17.200 Nicotine dependence, unspecified, uncomplicated
CPT/HCPCS: 99213; G0463